=== PATIENT | male | born 1980 | race Two or more races ===

== ENCOUNTER 2016-12-24 09:10 | Emergency (ER) | payer BC ==
[2016-12-24] MEDS ORDERED: Ketorolac INJ* 30 MG/ML 1 ML VIAL IV PUSH ONE (09:48)
[2016-12-24] MEDS ORDERED: NS 0.9% 1000 ML* 1,000 ML IV ONE (09:48)
[2016-12-24 10:31] LABS: Hematocrit 42 % (42-52); Hemoglobin 13.8 g/dl (14.0-18.0); Mean Corpuscular HGB Conc 33 g/dl (31-36); Mean Corpuscular Hemoglobin 28 pg (27-31); Mean Corpuscular Volume 83 fL (80-94); Mean Platelet Volume 9 um3 (7.4-10.4); Red Blood Count 5.02 10^6/ul (4.0-5.4); Red Cell Distribution Width 14 % (10.5-15); White Blood Count 6.4 10^3/ul (3.5-10.8)
--- NOTE | 2016-12-24 10:33 | RAD ---
INDICATION: Left flank abdominal pain. COMPARISON: There are no prior studies available for comparison. TECHNIQUE: A CT scan of the abdomen and pelvis was performed without intravenous or oral contrast. Contiguous axial sections were obtained from the lung bases through the symphysis pubis. Images were reconstructed in the coronal and sagittal planes. FINDINGS: The lung bases are clear. No pleural effusion is present. The liver and spleen are within normal limits in size without significant focal abnormality on this noncontrast study. No calcified gallstones are seen. The pancreas appears to be within normal limits in size. The adrenal glands appear to be within normal limits. There is a 6 x 3 mm calculus present in an upper pole calyx of the right kidney. The left kidney is mildly enlarged. There is dilatation of the left renal pelvis calyces and proximal ureter to the level of a 3 mm calculus in the proximal left ureter which is causing moderate hydronephrosis. No additional ureteral or bladder calculi are seen. The aorta is normal in caliber without significant calcific plaque. No significant enlarged retroperitoneal lymph nodes are seen. The stomach, small and large bowel appear nondistended. The appendix is within normal limits. There is mild descending and sigmoid diverticulosis without evidence for diverticulitis. No free intraperitoneal air or fluid is seen. No significant focal osseous abnormality is seen. IMPRESSION: 1. THERE IS A 3 MM CALCULUS IN THE PROXIMAL LEFT URETER CAUSING MODERATE HYDRONEPHROSIS. 2. ADDITIONAL 6 MM NONOBSTRUCTING CALCULUS IN THE UPPER POLE OF THE RIGHT KIDNEY.
[2016-12-24 10:38] LABS: Urine Bacteria Absent (Absent); Urine Bilirubin Negative (Negative); Urine Glucose Negative (Negative); Urine Nitrite Negative (Negative)
[2016-12-24 10:42] LABS: BUN/Creatinine Ratio 18.1 (8-20); EGFR African American 159.8 (>60); EGFR Non-African American 124.2 (>60)
[2016-12-24 11:18] VITALS: BP 107/58
--- NOTE | 2016-12-27 14:26 | ED ---
Yang Garcia Rebecca, scribed for Jose F Malin MD on 12/24/16 at 0950 . Abdominal Pain/Male - HPI Summary HPI Summary: Pt is a 36 y/o M who presents to ED c/o abd pain. Sx began approximately 1.5 days ago and is currently moderate, ranked 5/10 characterized as a constant pressure with intermittent sharp pain. Reports pain is in the testicles with radiation upwards into the L-side of the abdomen and L flank. Sx aggravated by nothing and alleviated by laying on the abdomen, unchanged by going upstairs or moving. Denies N/V, dysuria, hematuria, penile discharge, testicular swelling and lumps in the scrotum. PMHx chronic back pain and kidney stones. Current pain is similar to when he had kidney stones 15 years ago but pain is more concentrated in the inguinal region this time. PSHx appy. - History of Current Complaint Chief Complaint: EDAbdPain Stated Complaint: TESTICULAR PAIN Time Seen by Provider: 12/24/16 09:44 Hx Obtained From: Patient Onset/Duration: Lasting Days - 1.5 days, Still Present Timing: Constant, Intermittent - Sharp Severity Currently: Moderate Pain Intensity: 5 Pain Scale Used: 0-10 Numeric Location: Groin - Testicles, Flank - Left, Other - L-side Character: Sharp - Intermittent, Other: - Pressure Aggravating Factor(s): Nothing Alleviating Factor(s): Other: - Laying on the abdomen Associated Signs And Symptoms: Positive: Negative. Negative: Urinary Symptoms, Nausea, Vomiting, Penile Discharge - Allergies/Home Medications Allergies/Adverse Reactions: Allergies Allergy/AdvReac Type Severity Reaction Status Date / Time Amoxicillin Allergy Severe Diarrhea Verified 12/24/16 09:18 PMH/Surg Hx/FS Hx/Imm Hx History: Reports: Hx Kidney Stones Musculoskeletal History: Reports: Hx Back Problems - Chronic back pain secondary to degenerative disc disease - Surgical History Surgery Procedure, Year, and Place: [place] Infectious Disease History: No Infectious Disease History: Denies: Traveled Outside the [place] in Last 30 Days - Family History Known Family History: Positive: Diabetes - Social History Occupation: Employed Full-time Alcohol Use: None Substance Use Type: Reports: None Smoking Status (MU): Never Smoked Tobacco Review of Systems Negative: Fever, Chills Negative: Erythema Negative: Sore Throat Negative: Chest Pain Negative: Shortness Of Breath, Cough Positive: Abdominal Pain - testicular pain radiating upwards into the left side of the abdomen and L flank. Negative: Vomiting, Nausea Positive: other - Denies penile discharge, testicular swelling and lumps in the scrotum. Negative: dysuria, hematuria Negative: Myalgia, Edema Negative: Rash Neurological: Other - Negative dizziness All Other Systems Reviewed And Are Negative: Yes Physical Exam - Summary Physical Exam Summary: Constitutional: Well-developed, Well-nourished, Alert. (-) Distressed Skin: Warm, Dry HENT: Normocephalic; Atraumatic Eyes: Conjunctiva normal Neck: Musculoskeletal ROM normal neck. (-) JVD, (-) Stridor, (-) Tracheal deviation Cardio: Rhythm regular, rate normal, Heart sounds normal; Intact distal pulses; The pedal pulses are 2+ and symmetric. Radial pulses are 2+ and symmetric. (-) Murmur Pulmonary/Chest wall: Effort normal. (-) Respiratory distress, (-) Wheezes, (-) Rales Abd: Soft, LLQ and Left CVA tenderness, (-) Distension, (-) Guarding, (-) Rebound. No palpable hernias. Musculoskeletal: (-) Edema Lymph: (-) Cervical adenopathy Neuro: Alert, Oriented x3 Psych: Mood and affect Normal exam deferred, will repeat if CT is negative. Triage Information Reviewed: Yes Vital Signs On Initial Exam: Initial Vitals Temp Pulse Resp BP Pulse Ox 97.8 F 70 15 102/62 100 12/24/16 09:14 12/24/16 09:14 12/24/16 09:14 12/24/16 09:14 12/24/16 09:14 Vital Signs Reviewed: Yes Diagnostics - Vital Signs Vital Signs Temp Pulse Resp BP Pulse Ox 12/24/16 09:14 97.8 F 70 15 102/62 100 - Laboratory Result Diagrams: 12/24/16 10:05 12/24/16 10:05 Lab Statement: Any lab studies that have been ordered have been reviewed, and results considered in the medical decision making process. - CT Abd/Pel CT CT Interpretation: Positive (See Comments) - 1. THERE IS A 3 MM CALCULUS IN THE PROXIMAL LEFT URETER CAUSING MODERATE HYDRONEPHROSIS. 2. ADDITIONAL 6 MM NONOBSTRUCTING CALCULUS IN THE UPPER POLE OF THE RIGHT KIDNEY. CT Interpretation Completed By: Radiologist Re-Evaluation - Re-Evaluation First Eval Re-Evaluation Time: 10:58 Change: Improved Comment: Discussed CT reuslts. Pt reports he is feeling improved. Abdominal Pain Fem Course/Dx - Course Assessment/Plan: Pt is a 36 y/o M who presents to ED c/o testicular and L-sided abdominal and L flank pain for 1.5 days. Pain is currently moderate, ranked 5/ 10 characterized as a constant pressure with intermittent sharp pain. Sx alleviated by laying on the abdomen, unchanged by going upstairs or moving. Denies N/V, dysuria, hematuria, penile discharge, testicular swelling and lumps in the scrotum. PMHx chronic back pain and kidney stones. Current pain is similar to when he had kidney stones 15 years ago but pain is more concentrated in the inguinal region this time. PSHx appy. In the ED course, pt was administered Toradol and Ns, which improved sx. Abd/Pel CT reveals 1. THERE IS A 3 MM CALCULUS IN THE PROXIMAL LEFT URETER CAUSING MODERATE HYDRONEPHROSIS. 2. ADDITIONAL 6 MM NONOBSTRUCTING CALCULUS IN THE UPPER POLE OF THE RIGHT KIDNEY. Pt will be D/C to home with Dx of kidney stone, Rx for Motrin, Flomax and Percocet 5/325 and a follow up with urology. He understands and agrees. Patient medications reviewed this visit. - Diagnoses Provider Diagnoses: Kidney stone Discharge - Discharge Plan Condition: Stable Disposition: HOME Prescriptions: Ibuprofen TAB* [Motrin TAB* 600 MG] 600 mg PO Q6H PRN #15 tab PRN Reason: Pain - Moderate To Severe Tamsulosin CAP* [Flomax CAP*] 0.4 mg PO DAILY #7 cap oxyCODONE/Acetamin 5/325 MG* [Percocet 5/325 TAB*] 1 tab PO Q6H PRN #12 tab MDD 4 PRN Reason: Pain Scale 6-10 Patient Education Materials: Kidney Stones (ED) Referrals: Miguel Vasquez MD [Medical Doctor] - 3 Days Additional Instructions: RETURN TO THE EMERGENCY DEPARTMENT FOR CHANGING OR WORSENING SYMPTOMS The documentation as recorded by the Yang ramos Rebecca accurately reflects the service I personally performed and the decisions made by , Jose F Malin MD.
== END 2016-12-24 11:15 | disposition home or self-care (01) ==
LOC: ED 09:10 → MERGE 09:10 → ED 11:15
DX: N13.30 Unspecified hydronephrosis (principal); Z87.442 Personal history of urinary calculi; Z88.0 Allergy status to penicillin
CPT/HCPCS: 36415; 74176; 80048; 81003; 81015; 85027; 87086; 96374; 99282; J1885

== ENCOUNTER → 2017-02-23 06:15 | Day surgery (SDC) | payer BC ==
--- NOTE | 2017-02-20 13:31 | HP ---
HISTORY AND PHYSICAL: DATE OF PLANNED ADMISSION AND SURGERY: 02/23/17 HISTORY OF PRESENT ILLNESS: Mr. Cosme is a 36-year-old male who is admitted with a right proximal ureteral calculus for cystoscopy, right ureteroscopy, laser lithotripsy and right ureteral stent placement. The patient's history goes back to about 2 months ago when he presented to the emergency room with symptoms of left renal colic. Noncontrast CT of the abdomen and pelvis showed a 4 to 5 mm calculus in the proximal left ureter and a 7 mm calculus in the upper pole infundibulum of the right kidney. The patient was managed conservatively and was followed in the office. About 2 to 3 weeks later, he spontaneously passed the left renal calculus. Then, the right renal calculus dropped into the proximal right ureter and he was having on and off episodes of right flank pain. The calculus in the right ureter was observed and was followed with periodic KUB's and renal ultrasounds. It remained in the proximal right ureter about 3.5 cm distal to the ureteropelvic junction and was causing moderate right hydronephrosis. He was having on and off episodes of right flank pain. Because of the above history and findings and the duration of the symptoms and the proximal location of the stone and its size, the patient is admitted for the above procedure. PAST MEDICAL HISTORY AND SYSTEM REVIEW: Relevant for an episode of renal colic that occurred about 15 years ago. At that time, he passed the stone spontaneously. He has history of osteoarthritis of the spine. He also has border-line diabetes, which is managed on diet and exercise only. Otherwise, in excellent health. MEDICATIONS: He is on no chronic medications. ALLERGIES: He reports that amoxicillin gave him diarrhea but he does have an allergic reaction to it. SOCIAL HISTORY: He is a nonsmoker. He is . 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 PHYSICAL EXAMINATION GENERAL: Pleasant healthy and fit looking male. VITAL SIGNS: Blood pressure 100/60, pulse of 70. LUNGS: Clear. HEART: Regular and rhythmic. No murmurs. ABDOMEN: Soft. There is mild right CVA tenderness. EXTERNAL GENITALIA: Not circumcised. There are no penile lesions. No phimosis. Testes are normal. No inguinal hernias. IMPRESSION: Proximal right ureteral calculus between 7 and 10 mm in size. It has been in the same location in the proximal ureter for at least the last month with on and off episodes of right flank pain. PLAN: Plan is for cystoscopy, right ureteroscopy, laser lithotripsy and right ureteral stent placement. If it is noted during the procedure that the right ureter will not yield to the ureteroscope, then a right ureteral stent will be placed and the patient will be brought back in for shockwave lithotripsy and stent removal. I discussed the above plans in detail with the patient. All his questions were answered. [id number]/[facility] #: [id number] CHRIS
[~2017-02-23 06:15] MED LIST: Buffered Lidocaine 0.9% SYRIN* 5 ML/SYR SYRINGE INTRADERM ONE; Buffered Lidocaine 0.9% SYRIN* 5 ML/SYR SYRINGE ONE; DiMENhydriNATE IV* 50 MG/ML VIAL IV PUSH PRN; DiMENhydriNATE IV* 50 MG/ML VIAL ONE; Iohexol 180 (CONTRAST) 10 ML SDV IV ONE; Lidocaine 2% PF * 5 ML VIAL ONE; Phenazopyridine TAB* 100 MG ONE; Propofol* 10 MG/ML 20 ML BTL IV PUSH ONE; cefTRIAXone VIAL(*) 1,000 MG in NS 0.9% 50 ML* 50 ML IVPB ONE; cefTRIAXone(*) 1 GM ADVAN ONE; fentaNYL* 50 MCG/ML 2 ML VIAL (100 MCG VIAL) ONE; oxyCODONE/Acetamin 5/325 MG* TAB ONE; oxyCODONE/Acetamin 5/325 MG* TAB PO PRN
[2017-02-23] MEDS: fentaNYL* 50 MCG/ML 2 ML VIAL (100 MCG VIAL) IV PRN ×4 (09:27→10:44)
--- NOTE | 2017-02-23 09:45 | RAD ---
INDICATION: Right ureteral stent insertion COMPARISONS: None relevant TECHNIQUE: Fluoroscopy was provided for a retrograde pyelogram and stent placement. Total fluoroscopy time is: 8 seconds FINDINGS: Contrast is noted within the renal collecting system. A ureteral stent is noted. IMPRESSION: FLUOROSCOPY WAS PROVIDED FOR A RETROGRADE PYELOGRAM AND STENT PLACEMENT CPT II Codes: 6045F
[2017-02-23 12:45] VITALS: BP 105/70
--- NOTE | 2017-02-24 00:24 | OP ---
DATE OF OPERATION: 02/23/17 [facility] DATE OF : 82 SURGEON: Miguel Vasquez MD ANESTHESIOLOGIST: Ernie Lemus MD. ANESTHESIA: General. PRE-OP DIAGNOSIS: Proximal right ureteral calculus. POST-OP DIAGNOSES: 1. Proximal right ureteral calculus. 2. Urethral lesions. OPERATIVE PROCEDURE: 1. Cystoscopy. 2. Excisional biopsies and fulguration of 2 urethral lesions. 3. Right ureteroscopy and pyeloscopy. 4. Laser lithotripsy of right ureteral calculus. 5. Right retrograde pyelography and placement of right ureteral stent (6-St Lucian ). INDICATION FOR PROCEDURE: Mr. Cosme is a 36-year-old male who started having symptoms of right renal colic secondary to an 8-mm calculus in the proximal right ureter. It was initially managed conservatively; however, he continued to be symptomatic from it and had not passed it in more than a month. Renal ultrasound confirmed mild right hydronephrosis and a 8 to 10 mm calculus in the proximal right ureter. The patient is admitted for the above procedure. PATHOLOGY: At cystoscopy, there was a small papillary lesion measuring about 2 to 3 mm located at the junction between the penile and bulbar urethrae at 1 o' clock. There was another polyp-like lesion measuring 4 mm in size located in the proximal bulbar urethra. No other suspicious lesions were seen. Examination of the bladder showed normal bladder mucosa. The ureteral orifices looked normal. There were no suspicious bladder lesions seen. At fluoroscopy, a radiopaque calculus was noted in the area of the proximal right ureter. Upon right ureteroscopy, a calculus that had the gross appearance of calcium oxalate stone was noted in the proximal right ureter about 2 cm distal to the ureteropelvic junction. Retrograde pyelography showed mild to moderate hydronephrosis. DESCRIPTION OF PROCEDURE: After successful general anesthesia, the patient was placed in the lithotomy position and was prepped and draped for a cystoscopy. Cystoscopy was performed and the findings in the urethra were noted. Using the rigid biopsy forceps, the above 2 lesions were excised with a biopsy forceps and were sent for pathology. The sides of the lesions were then fulgurated with the Bugbee electrode achieving good hemostasis and no residual lesions. The cystoscope was then introduced inside the bladder and the bladder was carefully inspected. A flexible-tip guidewire was then introduced into the right orifice and positioned in the area of the renal pelvis under fluoroscopy guidance. The calculus was noted in the proximal ureter. The ureter was then dilated using a 5-St Lucian and then an 8-St Lucian open-ended catheter, fed on top of the guidewire, and the catheters introduced just to below the calculus. The cystoscope was then removed keeping the guidewire in place. A size 6.5 semi -rigid tapered ureteroscope was then introduced inside the bladder. A flexible- tip basket was then introduced through the port of the ureteroscope and the flexible tip was passed inside the ureter and used as a guide to introduce the ureteroscope without trauma inside the ureter. The calculus was identified in the proximal ureter. As it was manipulated to engage it in the basket, the stone migrated inside the renal pelvis. The ureteroscope was then introduced inside the renal pelvis. The calculus was visualized and was successfully basketed and brought down into the proximal ureter. Using the 550 micron laser fiber that was introduced into the other port of the ureteroscope, the calculus which was still engaged within the basket was then broken into several fragments and the fragments were extracted. The larger one was sent for stone analysis. After making sure there were no significant stone fragments left, retrograde pyelography was performed. There was no extravasation. A size 6-St Lucian stent was then placed with the proximal end coiling in the renal pelvis and distal end coiling inside the bladder. There was good drainage of contrast from the kidney. A size 18-St Lucian Aguilar catheter was then passed inside the bladder and the balloon inflated with 10 cc of water. The patient tolerated the procedure well and left the operating room in good condition. [id number]/[facility] #: [id number] [facility] INSANEZoya
== END | disposition home or self-care (01) ==
LOC: OR 06:15
PROVIDERS: ATTEND Urology
DX: N13.2 Hydronephrosis with renal and ureteral calculous obstruction (principal); N36.2 Urethral caruncle
CPT/HCPCS: 74420; 82365; 88300; 88305; A9270-GY; C1876; J0696; J1240; J2704; J3010